=== PATIENT | male | born 1965 | race Caucasian/White ===

== ENCOUNTER 2023-12-02 05:44 | Observation (INO) ==
--- NOTE | 2023-11-26 10:23 | Anesthesiology Consultation ---
Date of Service November 26, 2023 Assessment & Plan Chart Review Chart Review: Acceptable Risk for Surgery and Patient NOT seen in Pre Admission Testing Consults Requested none History Surgery Operation Date: 12/02/23 07:30 Proposed Procedures p Robotic Assisted Laparoscopic Radical Retropubic Prostatectomy, Possible Open, Possible Pelvic Lymph Node Dissection - Yo Leiva MD Height/Weight Height: 6 ft 5 in Weight: 136.078 kg Allergies Allergy/AdvReac Type Severity Reaction Status Date / Time Lxtxuky-HWV-[id number] Reductase AdvReac Unknown Cough Verified 11/26/23 08:46 Inhibitor Medications Home Medications Medication Instructions Recorded Confirmed Last Taken amlodipine 5 mg tablet 5 mg PO QAM 11/26/23 11/26/23 Unknown ascorbic acid (vitamin C) 250 mg 250 mg PO DAILY 11/26/23 11/26/23 Unknown tablet (Vitamin C) aspirin 81 mg tablet,delayed 81 mg PO DAILY 11/26/23 11/26/23 Unknown release cholecalciferol (vitamin D3) 50 50 mcg PO DAILY 11/26/23 11/26/23 Unknown mcg (2,000 unit) tablet (Vitamin D3) doxycycline hyclate 50 mg capsule 50 mg PO QAM 11/26/23 11/26/23 Unknown empagliflozin 25 mg tablet 25 mg PO HS 11/26/23 11/26/23 Unknown (Jardiance) fexofenadine 180 mg tablet 180 mg PO DAILY PRN Allergy 11/26/23 11/26/23 Unknown Symptoms glyburide 5 mg tablet 10 mg PO BID 11/26/23 11/26/23 Unknown losartan 100 1 tab PO QAM 11/26/23 11/26/23 Unknown mg-hydrochlorothiazide 25 mg tablet metformin 1,000 mg tablet 1,000 mg PO BIDWMEAL 11/26/23 11/26/23 Unknown repaglinide 2 mg tablet 4 mg PO HS 11/26/23 11/26/23 Unknown semaglutide 2 mg/dose (8 mg/3 mL) 2 mg subcut WK 11/26/23 11/26/23 Unknown subcutaneous pen injector (Ozempic) Past Medical History Medical History Seasonal allergies History of COVID-19 06/2022- no hosp; resolved Sleep apnea CPAP History of hair or hair follicle disorder gets infected hair follicles, reason for daily doxycycline HTN (hypertension) Diabetes Hx of retained foreign body fully removed foot Prostate cancer Past Family History Family History Other No family history of adverse response to anesthesia Past Surgical History Surgical History Hx of colonoscopy Hx of amputation partial toe amputation Social History Smoking Status: Never smoker Do You Dip or Chew Tobacco: No Hx Alcohol Use: No Hx Substance Use: No substance use type: does not use Testing Electrocardiogram Date: 11/17/23 Findings: + NSR @ (86 bpm) Chest X-Ray Date: 11/17/23 Findings: + NAD Echocardiogram Date: 06/14/21 LV wall thickness is mildly increased LV EF 60-64% LV wall motion is normal LV diastolic function is mildly abnormal (grade 1) RV systolic function is normal LA is normal sized RA size is normal No significant valvular disease is present
[2023-12-02] MEDS: HEPARIN SOD 5,000 UNIT/0.5 ML VIAL SC SCH (06:31)
[2023-12-02] MEDS: LR 15ML/HR IV SCH (06:31)
[2023-12-02] MEDS ORDERED: fentaNYL citrate PF 100 MCG/2 ML VIAL ONE ×2 (07:14→08:32)
[2023-12-02] MEDS ORDERED: MIDAZOLAM HCL 1 MG/ML 2ML VIAL ONE (07:15)
[2023-12-02] MEDS ORDERED: PROPOFOL IV EMULSION 10 MG/ML 20 ML VIAL IV ONE (07:20)
[2023-12-02] MEDS ORDERED: LIDOCAINE 2% 2 ML VIAL/AMP(20MG/ML) INFIL ONE (07:20)
[2023-12-02] MEDS ORDERED: ROCURONIUM BROMIDE 10 MG/ML 5 ML VIAL IV ONE ×4 (07:20→10:44)
--- NOTE | 2023-12-02 07:24 | History & Physical Bridge Note ---
Date of Service December 02, 2023 History & Physical Bridge Note I have examined the patient, reviewed the History & Physical and in the interval since the performance of the History & Physical I have noted the following changes of clinical significance: no changes noted
[2023-12-02] MEDS ORDERED: HYDROmorphone INJ 2 MG/ML SYR/VIAL IV PRN (07:26)
[2023-12-02] MEDS ORDERED: PROMETHAZINE HCL 6.25 MG in SODIUM CHLORIDE 0.9% 50 ML IV PRN (07:26)
[2023-12-02] MEDS ORDERED: ePHEDrine sulfate 50 MG/ML AMP IV PRN (07:26)
[2023-12-02] MEDS ORDERED: ONDANSETRON INJ 2 MG/ML 2 ML VIAL IV PRN ×2 (07:26→12:30)
[2023-12-02] MEDS ORDERED: ATROPINE SULFATE 0.1 MG/ML 10ML SYR IV PRN (07:26)
[2023-12-02] MEDS: SURGICEL ABSORB HEMOSTAT 2IN X 14IN TOP ONE (08:44)
[2023-12-02] MEDS ORDERED: HYDROmorphone INJ 2 MG/ML SYR/VIAL ONE (08:55)
[2023-12-02] MEDS: FLOSEAL HEMOSTATIC MATRIX 10ML TOP ONE (10:11)
[2023-12-02] MEDS ORDERED: KETOROLAC 30 MG/ML VIAL ONE (10:43)
[2023-12-02] MEDS ORDERED: ONDANSETRON INJ 2 MG/ML 2 ML VIAL ONE ×2 (10:43)
[2023-12-02] MEDS ORDERED: DEXAMETHASONE SOD INJ 4 MG/ML VIAL ONE (10:43)
[2023-12-02] MEDS ORDERED: NEOSTIGMINE METHYLSULFATE 1 MG/ML 10ML VIAL ONE (10:48)
[2023-12-02] MEDS ORDERED: GLYCOPYRROLATE 0.2 MG/ML VIAL ONE (10:48)
[2023-12-02] MEDS: BUPIVACAINE 0.5 % 5 MG/1 ML MPF 30ML VIAL ONE (10:55)
--- NOTE | 2023-12-02 11:20 | Operative Report ---
[facility] Post Operative Report Pre & Post Diagnosis Operation Date: 12/02/23 07:30 Pre-Op Diagnosis: Malignant Neoplasm of Prostate Post-Op Diagnosis: Malignant Neoplasm of Prostate I identified the patient and participated in the time-out.: Yes Procedure Operation Date: 12/02/23 07:30 Actual Procedures p Robotic Assisted Laparoscopic Radical Retropubic Prostatectomy(Not Applicable) - oY Leiva MD Surgeon Yo Leiva MD Dispensary Clerk Lisbeth Edmondson Estimated Blood Loss 100 Findings Consistent with Post-Op Diagnosis Specimens 1. Periprostatic fat 2. Prostate seminal vesicles Description of Procedure The patient was identified in the preoperative holding area, appropriate informed consents were reviewed and completed, and he was transported to the operating suite. Subcutaneous heparin was administered in the pre-operative holding area. Upon arrival in the operating suite, he received appropriate antibiotics and general anesthesia. He was positioned in dorsal lithotomy, a B&O suppository was inserted after digital rectal exam, and he was prepped and draped in standard fashion. A Wagner catheter was inserted in the sterile field. A Veress needle was passed per umbilicus with uniform insufflation of the abdomen to 15mmHg. He was placed in steep Trendelenburg position. A periumbilical incision was then made to accommodate a 12mm Visiport with 10mm 0degree laparoscope. Inspection of the abdomen was carried out, and there was no evidence of traumatic entry or injury secondary to the Veress needle. After confirming a clear anterior abdominal wall, ports were subsequently placed in standard robotic prostatectomy fashion without incident. To begin the robotic portion of the case, the left lateral aspect of the sigmoid was mobilized off of the left pelvic side wall to allow the pouch of Bo to be appropriately visualized. I then made an incision in the pouch of Bo, overlying the seminal vesicles. Both SVs as well as the ampullae of the vasa were entirely dissected, with the vasa transected 3cm from the prostate. The medial umbilical ligaments were then controlled with bipolar electrocautery just inferior to the umbilicus. Following cauterization, they were divided utilizing monopolar cautery. A peritoneal incision was carried from this location to the medial aspect of the internal inguinal rings bilaterally with care to avoid opening through the ring. This incision was concluded when the vas deferens was reached. Dissection of the bladder and prostate off of the posterior aspect of the pubic arch was completed allowing full visualization of the prostate. The fat overlying the prostate was removed en bloc and passed off the table as a specimen labeled "periprostatic fat". The endopelvic fascia was cleared during this portion of the procedure, and subsequently opened - first on the right and then the left. The incision through the endopelvic fascia began near the prostate-bladder junction and was carried to the apex with extreme care to preserve all lateral levator musculature as well as the periurethral musculature and sphincter complex. I additionally preserved the puboprostatic ligaments. I then controlled the DVC with a 3-0 V-lock suture in overlapping/figure of 8 fashion. Of note, the patient had a preoperative MRI which clearly identified a large intravesical median lobe. With this in mind I cautiously approach the bladder neck, and the Wagner balloon was clearly shifted off of the midline consistent with the expectation of the intravesical median lobe. Gentle lateral to medial pressure at the presumed level of the bladder neck with the robotic instruments and slight traction on the Wagner balloon allowed appropriate identification of the anterior bladder neck.. An anterior cystotomy was made, the Wagner balloon deflated and the catheter guided through the incision to allow anterior retraction. I attempted to preserve maximal bladder neck musculature as I circumferentially dissected around the bladder neck. The large intravesical median lobe was then visualized and I did not dissect through the posterior aspect of the bladder neck initially. Instead, I used a 3 oh V-Loc suture through the intravesical median lobe and then used my fourth arm of the robot to help elevate the median lobe to visualize the ureteral orifices and the rest of the bladder neck. An incision was made over the mucosa on the posterior aspect of the intravesical median lobe. Care was used to avoid encroachment upon the UOs. I was able to then gently dissected the mucosa off of the underlying prostatic tissue. And then reaching the posterior true bladder neck I was able to dissect through this. The dissection was carried through detrusor muscle until the bilateral ampullae of the vasa were identified. The previously dissected vasa and SVs were brought through the incision and used to elevated the prostate anteriorly. A posterior plane behind the prostate was then developed - splitting Denonvilliers's fascia. This dissection was carried as far as possible towards the apex as well as far as possible laterally. An incision in the lateral prostatic fascia was then made bilaterally to facilitate control of the vascular pedicles and preservation of the nerve bundles. Vasculature running along the posterior/lateral aspect of the prostate was preserved as well as the tissue containing the nerves. The pedicles were then controlled with a series of Weck clips. The apical attachments of the prostate were remaining at that stage. The DVC was divided after control with bipolar cautery over the prostate. Continuous inspection from anterior and lateral views allowed me to closely follow the apical contour of the prostate and maximally preserve urethral length and tissue. There was excellent nerve sparing as well as urethral sparing. The prostate was entirely freed at that point, and collected in an EndoCatch bag before being moved out of the field of vision. Hemostasis was confirmed and anastomosis of the bladder and urethra was completed utilizing a double armed V- Lock stitch. A new Wagner catheter was inserted and the anastomosis tested with irrigation. Fortunately, no bladder neck reconstruction was required to achieve an adequate and appropriate anastomosis. There was no evidence of leak. The robot was undocked, the specimen extracted through expansion of the chava- umbilical camera port. The fascia was closed with a series of 0-PDS figure of 8 stitches. The right timber management assistant port was closed in two layers - with a figure of 8 0-Vicryl to reapproximate the fascia followed by 4-0 Monocryl to close the skin. Monocryl was used to close all other skin incisions. All wounds were dressed with Dermabond. The case was concluded and the patient taken to the PACU in stable condition. Lisbeth Edmondson assisted from incision to closure. I attest to the content of the Intraoperative Record and any orders documented therein. Any exceptions are noted below.
[2023-12-02] MEDS: fentaNYL citrate PF 100 MCG/2 ML VIAL IV PRN (11:32)
--- NOTE | 2023-12-02 11:45 | Anesthesiology Progress Note ---
Date of Service December 02, 2023 Anesthesia Post Procedure Vital Signs Vital Signs: Temp Pulse Resp BP Pulse Ox O2 Del Method 12/02/23 06:20 37.2 C 75 20 143/78 H 97 Room Air Transfer of Care Handoff Completed per policy Notes Mental Status: alert / awake / arousable Patient Amnestic to Procedure: Yes Nausea / Vomiting: adequately controlled Pain: adequately controlled Airway Patency, RR, SpO2: stable & adequate BP & HR: stable & adequate Hydration State: stable & adequate Anesthetic Complications: no major complications apparent
[2023-12-02 12:04] LABS: Basophils # (auto) 0.05 K/uL (0.00-0.20); Basophils % (auto) 0.4 %; Eosinophils # (auto) 0.06 K/uL (0.00-0.50); Eosinophils % (auto) 0.5 %; Hematocrit (blood only) 49.1 % (42.0-52.0); Hemoglobin 16.3 g/dl (14.0-18.0); Immature Granulocytes # (auto) 0.06 K/uL (0.01-0.20); Immature Granulocytes % (auto) 0.5 %; Lymphocytes # (auto) 0.87 K/uL (1.20-3.40); Lymphocytes % (auto) 7.8 %; Mean Corpuscular Hemoglobin 30.8 pg (25.0-34.0); Mean Corpuscular Hgb Conc 33.2 g/dL (32.0-36.0); Mean Corpuscular Volume 92.6 fL (80.0-100.0); Mean Platelet Volume 9.8 fL (9.4-12.4); Monocytes # (auto) 0.28 K/uL (0.11-0.59); Monocytes % (auto) 2.5 %; Neutrophils % (auto) 88.3 %; Platelet Count 285 K/uL (130-400); RDW Coefficient of Variation 14.1 % (11.5-14.5); RDW Standard Deviation 47.9 fL (36.4-46.3); White Blood Count 11.22 K/ul (4.8-10.8)
[2023-12-02 12:24] LABS: Calcium 8.7 mg/dl (8.6-10.3); Potassium 4.7 mmol/L (3.5-5.1)
[2023-12-02 12:30] LABS: BUN Creatinine Ratio 15.4 (10-20); Creatinine Clr Calc Pharmacy 89.4 ml/min; Est GFR (Non-African American) 54.4 ml/min
[2023-12-02] MEDS ORDERED: ACETAMINOPHEN 325 MG TAB PO PRN (12:30)
[2023-12-02] MEDS ORDERED: MoRPHine SULFATE 2 MG/ML CARP IV PRN (12:30)
[2023-12-02] MEDS ORDERED: PHARMACY GLYCEMIC MGMT CONSULT PRN (12:30)
[2023-12-02] MEDS ORDERED: MoRPHine SULFATE 4 MG/ML 1 ML CARP\\VIAL IV PRN (12:30)
[2023-12-02] MEDS ORDERED: oxyCODONE HCL IR 5 MG TAB (IMMEDIATE RELEASE) PO PRN (12:30)
[2023-12-02] MEDS: LACTATED RINGER'S 1,000 ML IV SCH (12:44)
[2023-12-02] MEDS: INSULIN ASPART PER UNIT CHARGE SC SCH (13:18)
[2023-12-02] MEDS: LANTUS PER UNIT CHARGE SC ONE (13:18)
--- NOTE | 2023-12-02 14:54 | Pharmacy Report ---
Pharmacy Glycemic Short Note 2 - Date of Service December 02, 2023 - Glycemic Short BSG Results (Last 24 hours): 12/02/23 12/02/23 12/02/23 06:24 11:38 11:57 Glucose 292 H POC Glucose 144 H 265 H OUTPATIENT ANTIDIABETIC REGIMEN: * Ozempic 2mg SQ weekly * repaglinide 4mg PO HS * Jardiance 25mg PO HS * glyburide 10mg PO BID * HbA1c 8.6% (11/19/23) ASSESSMENT: * Horacio is a 58 YOM admitted status post laparoscopic prostatectomy with a history of type 2 diabetes mellitus. Pharmacy has been consulted to assist with glycemic management while inpatient. * Preoperative BSG this AM acceptable, he received 4mg of IV dexamethasone preoperatively and BSGs significantly catherine. Basal insulin initiated at approximately 0.4units/kg AdjBW to cover steroids. Reassess further basal insulin. * Novolog initiated at a weight based stress of 3 based on AdjBW. PLAN FOR INPATIENT GLYCEMIC CONTROL: * Hold outpatient oral diabetes medications * Basal insulin * Lantus 40 units SQ x1 now, reasses basal in AM * Bolus insulin * NovoLog per scale ACHS or Q6hrs while NPO * Goal Range: Low 110 mg/dL - High 140 mg/dL * Correction Factor: 15 mg/dL/unit * Nutritional / Prandial insulin per carb ratio of 1 unit per 5 grams CHO consumed
[2023-12-02] MEDS: ceFAZolin 2000MG 2,000 MG/15 ML SYR IV SCH (15:45)
[2023-12-02] MEDS: oxyCODONE HCL IR 5 MG TAB (IMMEDIATE RELEASE) PO PRN (19:47)
[2023-12-02] MEDS: DOCUSATE SODIUM 100 MG CAP PO SCH (19:48)
[2023-12-02] MEDS: HEPARIN SOD 5,000 UNIT/0.5 ML VIAL SQ SCH (20:37)
[2023-12-03 06:44] LABS: Basophils # (auto) 0.04 K/uL (0.00-0.20); Basophils % (auto) 0.4 %; Eosinophils # (auto) 0.16 K/uL (0.00-0.50); Eosinophils % (auto) 1.8 %; Hematocrit (blood only) 42.3 % (42.0-52.0); Hemoglobin 14.3 g/dl (14.0-18.0); Immature Granulocytes # (auto) 0.03 K/uL (0.01-0.20); Immature Granulocytes % (auto) 0.3 %; Lymphocytes # (auto) 2.25 K/uL (1.20-3.40); Lymphocytes % (auto) 24.8 %; Mean Corpuscular Hgb Conc 33.8 g/dL (32.0-36.0); Mean Corpuscular Volume 91.6 fL (80.0-100.0); Mean Platelet Volume 9.8 fL (9.4-12.4); Monocytes # (auto) 0.73 K/uL (0.11-0.59); Neutrophils # (auto) 5.87 K/uL (1.40-6.50); Neutrophils % (auto) 64.7 %; Platelet Count 234 K/uL (130-400); RDW Coefficient of Variation 13.9 % (11.5-14.5); RDW Standard Deviation 46.9 fL (36.4-46.3); Red Blood Count 4.62 M/uL (4.70-6.10); White Blood Count 9.08 K/ul (4.8-10.8)
[2023-12-03 07:07] LABS: BUN Creatinine Ratio 17.7 (10-20); Calcium 8.5 mg/dl (8.6-10.3); Creatinine Clr Calc Pharmacy 98.4 ml/min; Est GFR (African American) 70.7 ml/min
[2023-12-03] MEDS ORDERED: GLUCOSE 40% GEL 15 GM TUBE PO PRN (07:30)
[2023-12-03] MEDS ORDERED: GLUCOSE 10 TAB/TUBE PO PRN (07:30)
[2023-12-03] MEDS ORDERED: DEXTROSE 50% 50 ML SYRINGE IV PRN (07:30)
[2023-12-03] MEDS ORDERED: CARBOHYDRATES FOR HYPOGLYCEMIA PO PRN (07:30)
[2023-12-03] MEDS ORDERED: GLUCAGON FOR INJ 1 MG VIAL IM PRN (07:30)
[2023-12-03] MEDS: LOSARTAN/HCTZ 50/12.5MG TAB PO SCH (07:58)
[2023-12-03] MEDS: amLODIPine BESYLATE 5 MG TAB PO SCH (07:59)
--- NOTE | 2023-12-03 08:06 | Urology Progress Note ---
Date of Service December 03, 2023 Assessment & Plan (1) Prostate cancer: Plan: Postop day 1 status post robotic prostatectomy Recovery on pace Advance diet Ambulate Likely discharge home later today Admission and Anticipated Discharge Date Admission Date: December 02, 2023 Subjective Doing very well after his prostatectomy Ambulatory last night No significant pain Urine has cleared appropriately Labs are appropriate Good urine output No major complaints this morning Physical Exam Physical Exam: Abdomen soft, incisions appropriate Urine clear Results & Data Vital Signs (Past 12 Hours) Vital Signs Temp Pulse Resp BP Pulse Ox O2 Del Method 12/03/23 07:57 66 18 148/77 H 96 Room Air 12/03/23 02:47 36.8 C 62 17 126/75 98 Room Air 12/02/23 22:33 36.8 C 69 18 130/74 96 Room Air PG Care Time/CCT Total # of Minutes Spent Total Time Spent with Patient: Total time spent is greater than 50% in coordination of care (as documented) at patient's floor/unit and/or counseling patient: Coding Level of Care Code None Diagnoses Prostate cancer C61
--- NOTE | 2023-12-03 16:37 | Discharge Summary ---
Date of Service December 03, 2023 Admission HPI Per Admitting Provider 58-year-old male with prostate cancer admitted for robotic prostatectomy Admission Exam Per Admitting Provider Prominent suprapubic fat pad Constitutional well developed and well nourished Neck neck nontender Respiratory normal respiratory effort; no respiratory distress and does not use accessory muscles Cardiovascular Rate/Rhythm: regular rate Vessels: radial pulses present Extremities: no edema Gastrointestinal (Abdomen) Inspection/Auscultation: abdomen normal to inspection Percussion/Palpation: abdomen soft; abdomen nontender and no guarding Musculoskeletal Head/Neck/Chest: normocephalic and head atraumatic Extremities: extremities normal to inspection Skin no rashes and no lesions Trauma: no evidence of skin trauma Neurologic awake; not obtunded Speech / Cognition: normal speech Motor/Sensory: no tremor Psychiatric Orientation: alert and oriented x 3 Genitourinary no CVA tenderness Lymphatic no lymphadenopathy Principal Diagnosis Prostate cancer Discharge Exam Constitutional well developed and well nourished; no acute distress Respiratory normal respiratory effort; no respiratory distress and no labored breathing Gastrointestinal (Abdomen) Incisions appropriate, Dermabond intact Musculoskeletal Head/Neck/Chest: normocephalic Skin no rashes, warm and dry Neurologic moves all extremities and awake Psychiatric A+Ox3, euthymic affect Genitourinary Wagner draining clear yellow urine Discharge Data Allergies Allergy/AdvReac Type Severity Reaction Status Date / Time Wyqalkj-DWF-YjW Reductase AdvReac Unknown Cough Verified 12/02/23 06:15 Inhibitor Procedures Performed Operation Date: 12/02/23 07:30 Actual Procedures p Robotic Assisted Laparoscopic Radical Retropubic Prostatectomy(Not Applicable) - Yo Leiva MD Hospital Course (1) Prostate cancer: Plan 58-year-old male admitted status post robotic prostatectomy with Dr. Leiva. Patient tolerated procedure well. No acute issues postoperatively. He remained afebrile and hemodynamically stable. Labs were stable and appropriate. Pharmacy consulted for glycemic management while inpatient. Wagner draining clear yellow urine. Patient reported minimal pain. Ambulated without issue. Tolerated diet. Patient was discharged home on postop day #1 with a Wagner cat heter in place. He was in stable condition at time of discharge. Patient was sent 3 days of antibiotics to be taken around catheter removal. He declined pain medication. Discharge instructions were reviewed, all questions were answered. Appropriate postoperative follow-up appointments were in place. Total Time Total Time Spent Total Time Spent (In Minutes): 15 Discharge Plan Discharge Items Patient Disposition: Home - Self-Care Reason For Visit: Malignant Neoplasm of Prostate Discharge Diagnosis: Malignant Neoplasm of Prostate Activity: Per Instructions section Lifting: No more than 10 pounds Bathing Comment: OK to shower. No tub baths or soaks. Sexual Activity: Wait until after follow-up appointment Exercise/Sports: Wait until after follow-up appointment Driving/Machine Use: Do not drive if taking prescription pain medication Non-emergency contact: Surgeon and Urologist Call non-emergency contact if: you have any medication questions, your pain is not controlled, your pain is worsening, you have a fever, your wound has increased redness, your wound has increased drainage and your wound pain has increased Follow-up/Referrals: Yo Leiva MD [Physician] - 12/22/23 9:55 am Mxaime Robledo MD [Primary Care Provider] - [facility],Nurse [FAKE FOR SCHEDULES] - 12/08/23 11:00 am Diet: Carb Consistent or DM2 Addtl Attending Provider Instructions: Please take all medications as prescribed and keep all follow-ups as scheduled. Please call our office at [phone] with any questions, concerns or need to reschedule appointments for any reason. We are happy to assist you We have sent an antibiotic to your pharmacy of choice. Please begin antibiotic as prescribed the day BEFORE your scheduled catheter removal and continue as prescribed until complete. Activity: We recommend having someone with you for the first few days after surgery to help care for you. For the first 2 weeks after surgery, we would like you to get up and walk around your house. However, we recommend limit physical activity that would increase your heart rate. This will allow your body to rest and heal. Take naps if you feel tired. Don't lift anything heavier than 10 pounds, mow the law or ride a bicycle until your follow-up appointment. Please avoid long car rides. Home Care: Unless directed otherwise, drink 6 to 8 glasses of water a day (enough to keep your urine light colored). This will also help keep a healthy flow of urine. We recommend using a stool softener for the first two weeks to avoid constipation. Wagner Catheter or Suprapubic Catheter care: Keep the catheter well secured with either a leg back or leg strap with large bag. Empty your bag when it's about half full. You may notice some blood in the bag. This is normal after surgery and while the catheter is in place. Use mild soap (such as Dove or Dial) and water to wash the catheter and the head of your penis daily, or more frequently if needed. Return to your normal diet, we encourage good protein intake to promote healing. You may shower as normal. Please avoid tub baths or soaking until catheter removed and incisions well healed. Wearing sweat pants while you have the catheter is recommended, they will be more comfortable. Follow-up Your follow up appointments for having your catheter removed, and follow up with your physician should already be scheduled. If you have any questions regarding this, please contact our office. Your final pathology report will be discussed at your physician follow-up appointment. Call [facility] at [phone] right away if you have any of the following: Chest pain or trouble breathing (call [phone] or go to the hospital) Fever of 101F or higher, uncontrolled vomiting Heavy bleeding, clots, or bright red blood from the catheter Catheter that falls out or stops draining Foul-smelling discharge from your catheter Redness, swelling, warmth, or increased pain at your incision site Drainage, pus, or bleeding from your incision Pending Studies at Discharge: Yes (pathology) Stand-Alone Forms: My [facility] Wardrobe Housekeeper, Smoking Cessation Medications and DC Order Prescriptions: New ciprofloxacin HCl 500 mg tablet 500 mg PO BID 3 Days Qty: 6 0RF Rx Instructions: Start 1 day prior to catheter removal Continued repaglinide 2 mg tablet 4 mg PO HS glyburide 5 mg tablet 10 mg PO BID doxycycline hyclate 50 mg capsule 50 mg PO QAM fexofenadine 180 mg Tablet 180 mg PO DAILY PRN (Reason: Allergy Symptoms) amlodipine 5 mg tablet 5 mg PO QAM aspirin 81 mg Tablet,Delayed Release (Dr/Ec) 81 mg PO DAILY losartan-hydrochlorothiazide [Hyzaar] 100-25 mg Tablet 1 tab PO QAM ascorbic acid (vitamin C) [Vitamin C] 250 mg Tablet 250 mg PO DAILY metformin 1,000 mg Tablet 1,000 mg PO BIDWMEAL cholecalciferol (vitamin D3) [Vitamin D3] 50 mcg (2,000 unit) Tablet 50 mcg PO DAILY Jardiance 25 mg Tablet 25 mg PO HS Ozempic 2 mg/dose (8 mg/3 mL) Pen Injector 2 mg SUBCUT WK Discharge Orders: Discharge Order (Routine); Ordered 12/03/23 Ordered By: Lisbeth Alan/Other Patient Handouts: Urinary Catheter Bag Empty Clean, Indwelling Urinary Catheter Dc, Leg Bag Care Dc Admission Data Admit Date/Time: 12/02/23 11:19 Attending Provider: Yo Leiva Admit Provider: Yo Leiva Primary Care Provider: Maxime Robledo Other Interventions: Discharge Summary Assessment (RN) Last Done: 12/03/23 14:23 Coding Level of Care Code 11401 IN/OBS DISCH 30 MIN/LESS Diagnoses Prostate cancer C61
== END 2023-12-03 16:42 | disposition home or self-care (01) ==
LOC: ASU 05:44 → 3E 11:19 → INTOOBSV 11:19